=== PATIENT | female | born 1985 | race Caucasian/White ===

== ENCOUNTER 2021-03-07 13:55 | Outpatient (CLI) | payer OTHER | END 2021-03-07 14:15 | disposition home or self-care (01) | LOC: SLEEP 13:55 | PROVIDERS: ATTEND Otolaryngology Otolaryngology/Facial Plastic Surgery | DX: G47.33 Obstructive sleep apnea (adult) (pediatric) (principal); G47.10 Hypersomnia, unspecified; R68.84 Jaw pain | CPT/HCPCS: G0399 ==